=== PATIENT | male | born 1930 | race Caucasian/White ===

== ENCOUNTER 2016-06-04 18:15 | Inpatient (IN) | payer MEDICARE ==
[~2016-06-04] VITALS: Ht 170.2 cm; Wt 69.0 kg
[~2016-06-04 18:15] MED LIST: ALLO100T PO; ASPI1TAB PO; ASPI325T PO; ATOR1TAB19 PO; CAND16TA2 PO; CAND8TAB PO; CIPR500T89 PO; CYCL10TA PO; FLAG500T PO; GABA-279 PO; GLIP5TAB8 PO; GLYB25TA PO; HAIR1TAB2 PO; HYDR-3713 PO; METF500T PO; NABU750T PO; PERC5TAB6 PO; PROT1TAB2 PO; TAMS0.4C2 PO; TYLE650T30 PO; VITA200038 PO; VITMTA PO; ZOFR4TAB3 PO
[2016-06-04] MEDS ORDERED: D3 22000 PO (18:31)
[2016-06-04] MEDS ORDERED: LOSA25TA8 PO (18:31)
[2016-06-04] MEDS ORDERED: ASPI81TA85 PO (18:31)
[2016-06-04] MEDS ORDERED: PRESCAP6 PO (18:31)
[2016-06-04] MEDS ORDERED: LABETALOL HCL 100 MG/20 ML VIAL IV STA (18:56)
[2016-06-04 19:10] LABS: BASO % 0.2 % (0.0-1.0); EOS # 0.1 K/mm3 (0.0-0.50); EOS % 0.8 % (0.0-3.0); LARGE UNSTAINED CELL # 0.1 K/mm3 (0.0-0.4); LARGE UNSTAINED CELL % 1.6 % (0.0-4.0); LYMPH # 1.2 K/mm3 (1.5-4.5); LYMPH % 12.4 % (24.0-44.0); MEAN CORPUSCULAR HEMOGLOBIN 33.3 pg (27.0-33.0); MEAN CORPUSCULAR HGB CONC 34.1 g/dl (32.0-36.5); MEAN CORPUSCULAR VOLUME 97.6 fl (80.0-96.0); MONO # 0.6 K/mm3 (0.0-0.8); MONO % 6.9 % (0.0-5.0); NEUTROPHILS # 6.9 K/mm3 (1.8-7.7); NEUTROPHILS % 78.1 % (36.0-66.0); PLATELET COUNT, AUTOMATED 177 k/mm3 (150-450); RED CELL DISTRIBUTION WIDTH 12.6 % (11.5-14.5); WHITE BLOOD COUNT 8.8 K/mm3 (4.0-10.0)
[2016-06-04 19:26] LABS: ALBUMIN/GLOBULIN RATIO 1.29 (1.00-1.93); ALKALINE PHOSPHATASE 142 U/L (45-117); ALT/SGPT 29 U/L (12-78); ANION GAP 5 MEQ/L (8-16); AST/SGOT 25 U/L (15-37); BILIRUBIN,DIRECT 0.2 MG/DL (0.0-0.2); BILIRUBIN,TOTAL 0.5 MG/DL (0.2-1.0); BLOOD UREA NITROGEN 29 MG/DL (7-18); CARBON DIOXIDE LEVEL 32 MEQ/L (21-32); CHLORIDE LEVEL 100 MEQ/L (98-107); CREATININE FOR GFR 1.04 MG/DL (0.70-1.30); GLOMERULAR FILTRATION RATE > 60.0 (>35); GLUCOSE, FASTING 160 MG/DL (83-110); POTASSIUM SERUM 4.4 MEQ/L (3.5-5.1); SODIUM LEVEL 137 MEQ/L (136-145); TOTAL PROTEIN 7.1 GM/DL (6.4-8.2)
--- NOTE | 2016-06-04 19:32 | REP ---
CT HEAD WITHOUT CONTRAST: REASON: Altered mental status. COMPARISON: 01/14/2016 There has been no significant change from the prior exam. Age-related changes are seen with cerebral and cerebellar atrophy and deep matter ischemic changes. These findings are unchanged. There is no evidence of an acute intracranial hemorrhagic or nonhemorrhagic event. There is no shift of the midline structures. There is no evidence of a skull fracture. There is no change in the appearance of the imaged paranasal sinuses and mastoid air cells. They are clear. IMPRESSION:Chronic changes as described above. Signed by Jose Ortega DO 06/04/2016 07:38 P
--- NOTE | 2016-06-04 19:37 | REP ---
CHEST, TWO VIEWS: HISTORY: Altered mental status. COMPARISON: 02/01/2015 FINDINGS: The technique utilized in obtaining the radiograph has magnified the cardiac silhouette and accentuated the interstitial markings. The superior mediastinal structures are midline. The cardiac silhouette is unremarkable in size, shape, and position. The diaphragmatic surfaces of the lungs are regular, and the costophrenic angles are clear. The pulmonary pal are clear. The imaged osseous structures are intact. IMPRESSION: There is no acute cardiopulmonary disease. No significant change from the prior exam. Signed by Jose Ortega DO 06/04/2016 07:40 P
[2016-06-04] MEDS ORDERED: ASPIRIN 325 MG TAB PO ONE (20:00)
--- NOTE | 2016-06-04 21:11 | ECGEPIP ---
Stationary ECG Study [facility] - ED Test Date: 2016-06-04 Pat Name: BERT CASTLE Department: Room: - Gender: M Interior Design Assistant: JOSH : [id number] Requested By: MUNA Dyson Order Number: [id number] Reading MD: Shadia Cedeno Measurements Intervals [place] Rate: 89 P: ND: 0 QRS: -57 QRSD: 92 T: 58 QT: 366 QTc: 446 Interpretive Statements SINUS PAC MARKED LEFT AXIS DEVIATION NSTTW ABNORMALITY INCREASED RATE 01/14/16 Electronically Signed On 06-04-2016 21:11:05 EDT by Shadia Cedeno
[2016-06-04] MEDS ORDERED: niCARdipine IV 40 MG in APPROPRIATE DILUENT 1 EA IV SCH (21:26)
[2016-06-04] MEDS ORDERED: ASPI81TAEC PO (21:40)
[2016-06-04] MEDS ORDERED: LATA5OPD OU (21:40)
[2016-06-04] MEDS ORDERED: ALEV220T26 PO (21:40)
[2016-06-04] MEDS ORDERED: GLUCAGON FOR INJ 1 MG VIAL (J1610) SC PRN (22:30)
[2016-06-04] MEDS ORDERED: DEXTROSE 50% 50 ML SYRINGE IV PRN (22:30)
[2016-06-04] MEDS ORDERED: GLUCOSE 4 GM CHEW TABLET PO PRN (22:30)
--- NOTE | 2016-06-04 22:56 | HPEPDOC ---
Medical History and Physical Date of Admission Jun 04, 2016 at 21:26 History and Physical PRIMARY CARE PROVIDER: ATTENDING: Chandni Tovar MD CHIEF COMPLAINT: Altered mental status HISTORY OF PRESENT ILLNESS: This 86-year-old male past medical history of hypertension, TIA 4, diabetes mellitus, prostate cancer status post radiation smears ago, gout, back pain sciatica who presents with altered mental status and confusion. Daughter states that the patient was having some slurred speech which is his typical symptoms when he has his TIAs. He has been seen in [facility] on the daughter says he had an extensive workup with no cause for his TIAs. The patient has been maintained on aspirin and statin. Daughter states that the patient's was walking around the house and was very confused. His blood sugars were in the 200s, as blood pressure was 180/80 and continue to climb. He also had difficulty with speaking. Also had a facial droop which has improved since he's been in the ED. In the ED patient was also noted to have a blood pressure of 239/115 with a map of 156. He was started on a nicardipine drip with a goal map of 110-115. Will serve closely in ICU given this hypertensive emergency. ED physician had spoken to Dr. Puente who stated the patient falls outside of the window for TPA as his symptoms had occurred 2 PM today. PAST MEDICAL HISTORY: As per HPI PAST SURGICAL HISTORY: Hernia repair, cholecystectomy, hip repair SOCIAL HISTORY: No tobacco, alcohol, illicit drug use. FAMILY HISTORY:Non contrib. ALLERGIES: Please see below. REVIEW OF SYSTEMS: Unable to obtain - expressive aphasia HOME MEDICATIONS: Please see below. PHYSICAL EXAMINATION: Vitals: (see below) General: No acute distress, laying comfortably in bed. HEENT: Moist mucous membranes. Neck: No JVD or lymphadenopathy Cardiac: RRR, No murmurs Pulm: Clear to auscultation b/l. No wheezing, rhonchi Abd: NT/ND + BS Ext: No edema or cyanosis Neuro: Strength 4/5 RUE/RLE. 5/5 LUE/LLE. CN 2-12 intact. Difficulty in completing exam. Negative Babinki. Mod - severe Expressive aphasia. Difficulty completing full neuro exam and following directions. NIH 5 LABORATORY DATA: See below. IMAGING: CT Head 06/04/16 There has been no significant change from the prior exam. Age-related changes are seen with cerebral and cerebellar atrophy and deep matter ischemic changes. These findings are unchanged. There is no evidence of an acute intracranial hemorrhagic or nonhemorrhagic event. There is no shift of the midline structures. There is no evidence of a skull fracture. There is no change in the appearance of the imaged paranasal sinuses and mastoid air cells. They are clear. IMPRESSION:Chronic changes as described above. CXR 06/04/16 IMPRESSION: There is no acute cardiopulmonary disease. No significant change from the prior exam. MICROBIOLOGY: Please see below. ASSESSMENT/PLAN: Hypertensive emergency- patient with expressive aphasia, right-sided hemiparesis , sever dysarthria, NIH 5, that started at 2 PM. He is outside of the window for TPA. It's likely that the patient is having metabolic encephalopathy secondary to this hypertensive emergency. We'll reduce her blood pressure by 25 % over the next 24 hours with a goal map of 110 to 115. Neuro checks, PT/OT/ speech therapy. Nicardipine drip. Monitor in ICU. Continue aspirin and statin. MRI/MRA brain, MRA carotids. Diabetes mellitus- hold home by mouth regimen. Sliding scale insulin for now. History of prostate cancer status post radiation- has been having urinary retention had intermittently stopped his Flomax. DVT prophylaxis- SCDs Patient will be followed by Dr. Abreu starting 06/05/16 7 AM. Vital Signs Vital Signs Date Time Temp Pulse Resp B/P Pulse Ox O2 Delivery O2 Flow Rate FiO2 06/04/16 18:17 90 16 196/140 100 Nasal Cannula 2 06/04/16 18:24 97.9 Laboratory Data Labs 24H Laboratory Tests 2 06/04/16 18:49: Aspartate Amino Transf (AST/SGOT) 25, Alanine Aminotransferase (ALT/SGPT) 29, Alkaline Phosphatase 142H, Total Bilirubin 0.5, Direct Bilirubin 0.2, Albumin 4.0, Albumin/Globulin Ratio 1.29, Ammonia 15, Anion Gap 5L, White Blood Count 8.8, Red Blood Count 3.92L, Hemoglobin 13.1L, Hematocrit 38.3L, Mean Corpuscular Volume 97.6H, Mean Corpuscular Hemoglobin 33.3H, Mean Corpuscular Hemoglobin Concent 34.1, Red Cell Distribution Width 12.6, Platelet Count 177, Neutrophils (%) (Auto) 78.1H, Lymphocytes (%) (Auto) 12.4L, Monocytes (%) (Auto ) 6.9H, Eosinophils (%) (Auto) 0.8, Basophils (%) (Auto) 0.2, Neutrophils # ( Auto) 6.9, Lymphocytes # (Auto) 1.2L, Monocytes # (Auto) 0.6, Eosinophils # ( Auto) 0.1, Basophils # (Auto) 0.0, Calcium Level 9.0, Creatine Kinase MB 7.9H, Creatine Kinase MB Relative Index 3.64, Ethyl Alcohol Level < 0.003, Glomerular Filtration Rate > 60.0, Large Unclassified Cells # 0.1, Large Unclassified Cells % 1.6, Thyroid Stimulating Hormone (TSH) 5.360H, Total Creatine Kinase 217 , Total Protein 7.1, Troponin I 0.02 06/04/16 20:30: Urine Amorphous Sediment , Urine Appearance CLEAR, Urine Color YELLOW, Urine pH 6.0, Urine Specific [place] 1.013, Urine Protein NEGATIVE, Urine Glucose (UA) NEGATIVE, Urine Ketones NEGATIVE, Urine Urobilinogen 0.2, Urine Bilirubin NEGATIVE, Urine Leukocyte Esterase NEGATIVE, Urine Bacteria (Auto) NEGATIVE, Urine Blood NEGATIVE, Urine Calcium Carbonate Cryst(Auto) , Urine Calcium Oxalate Cryst (Auto) , Urine Calcium Phosphate Sariah (Auto) , Urine Cellular Casts , Urine Cystine Crystals , Urine Granular Casts (Auto) , Urine Hyaline Casts (Auto) 0, Urine Leucine Crystals , Urine Mucus (Auto) , Urine Nitrite NEGATIVE, Urine Oval Fat Bodies (Auto) , Urine RBC (Auto) 1, Urine Renal Epithelial Cells , Urine Sperm (Auto) , Urine Squamous Epithelial Cells 0, Urine Transitional Epithelial Cells , Urine Trichomonas (Auto) , Urine Triple Phosphate Cryst (Auto) , Urine Tyrosine Crystals , Urine Uric Acid Crystals ( Auto) , Urine WBC (Auto) 1, Urine Waxy Casts (Auto) , Urine Yeast-Like Cells ( Auto) CBC/BMP Laboratory Tests 06/04/16 18:49 Red Blood Count 3.92 L, Mean Corpuscular Volume 97.6 H, Mean Corpuscular Hemoglobin 33.3 H, Mean Corpuscular Hemoglobin Concent 34.1, Red Cell Distribution Width 12.6, Neutrophils (%) (Auto) 78.1 H, Lymphocytes (%) (Auto) 12.4 L, Monocytes (%) (Auto) 6.9 H, Eosinophils (%) (Auto) 0.8, Basophils (%) ( Auto) 0.2, Neutrophils # (Auto) 6.9, Lymphocytes # (Auto) 1.2 L, Monocytes # ( Auto) 0.6, Eosinophils # (Auto) 0.1, Basophils # (Auto) 0.0 Microbiology Microbiology 06/04/16 Urine Culture, Received Pending Home Medications Scheduled (Preservision Areds 2) 1 Cap Cap 1 CAP PO BID Allopurinol (Allopurinol) 100 Mg Tab 100 MG PO DAILY Aspirin (Aspirin EC) 81 Mg Tabec 81 MG PO DAILY Atorvastatin Calcium (Atorvastatin Calcium) 10 Mg Tab 10 MG PO DAILY Cholecalciferol (Vitamin D-3) 2,000 Unit Tab 2,000 UNIT PO DAILY Gabapentin (Gabapentin) 100 Mg Cap 200 MG PO BID Glipizide (Glipizide) 5 Mg Tab 1 TAB PO DAILY Latanoprost (Latanoprost) 50 Drop/2.5 Ml Soln 1 DROP OU QHS Losartan Potassium (Losartan Potassium) 25 Mg Tab 25 MG PO DAILY Scheduled PRN Naproxen Sodium (Aleve) 220 Mg Tab 440 MG PO BID PRN PRN PAIN Allergies Coded Allergies: Morphine (Unverified Adverse Reaction, Unknown, DISORIENTED, 06/04/16) CHANDNI TOVAR MD Jun 04, 2016 22:56
[2016-06-04] MEDS ORDERED: HALOPERIDOL 5 MG/ML VIAL (J1630) IM ONE (23:30)
[2016-06-05] VITALS (26 sets, daily range): BP systolic 94–178; BP diastolic 50–91; O2SAT 97–99
[2016-06-05] MEDS: LATANOPROST 0.005% OPHTH SOLN 2.5 ML OU SCH ×2 (02:11→20:39)
[2016-06-05 05:29] LABS: BASO % 0.3 % (0.0-1.0); EOS # 0.1 K/mm3 (0.0-0.50); EOS % 1.5 % (0.0-3.0); LARGE UNSTAINED CELL # 0.2 K/mm3 (0.0-0.4); LYMPH # 1.8 K/mm3 (1.5-4.5); LYMPH % 22.1 % (24.0-44.0); MEAN CORPUSCULAR HEMOGLOBIN 32.6 pg (27.0-33.0); MEAN CORPUSCULAR HGB CONC 33.9 g/dl (32.0-36.5); MEAN CORPUSCULAR VOLUME 96.4 fl (80.0-96.0); MONO # 0.7 K/mm3 (0.0-0.8); MONO % 9.4 % (0.0-5.0); NEUTROPHILS # 4.9 K/mm3 (1.8-7.7); NEUTROPHILS % 64.8 % (36.0-66.0); PLATELET COUNT, AUTOMATED 166 k/mm3 (150-450); RED CELL DISTRIBUTION WIDTH 12.7 % (11.5-14.5); WHITE BLOOD COUNT 7.6 K/mm3 (4.0-10.0)
[2016-06-05 05:47] LABS: ALBUMIN 3.4 GM/DL (3.2-5.2); ALBUMIN/GLOBULIN RATIO 1.06 (1.00-1.93); ALKALINE PHOSPHATASE 115 U/L (45-117); ALT/SGPT 23 U/L (12-78); ANION GAP 12 MEQ/L (8-16); AST/SGOT 29 U/L (15-37); BILIRUBIN,TOTAL 0.5 MG/DL (0.2-1.0); BLOOD UREA NITROGEN 23 MG/DL (7-18); CALCIUM LEVEL 8.9 MG/DL (8.8-10.2); CARBON DIOXIDE LEVEL 27 MEQ/L (21-32); CHLORIDE LEVEL 106 MEQ/L (98-107); CREATININE FOR GFR 0.91 MG/DL (0.70-1.30); GLOMERULAR FILTRATION RATE > 60.0 (>35); GLUCOSE, FASTING 128 MG/DL (83-110); MAGNESIUM LEVEL 2.2 MG/DL (1.8-2.4); POTASSIUM SERUM 3.8 MEQ/L (3.5-5.1); SODIUM LEVEL 145 MEQ/L (136-145); TOTAL PROTEIN 6.6 GM/DL (6.4-8.2)
[2016-06-05 08:03] LABS: THYROXINE (T4) 8.1 UG/DL (4.5-12.0)
[2016-06-05] MEDS: ATORVASTATIN 10 MG TAB PO SCH (08:56)
[2016-06-05] MEDS: HumaLOG INSULIN (NovoLOG) PER UNIT SC SCH ×3 (08:58→17:22)
[2016-06-05] MEDS ORDERED: ASPIRIN 325 MG TAB PO SCH (09:00)
[2016-06-05] MEDS: ALLOPURINOL 100 MG TAB PO SCH (10:42)
[2016-06-05] MEDS: VITAMIN D 1,000 INTERNATIONAL UNITS TABLET PO SCH (10:42)
--- NOTE | 2016-06-05 11:06 | IPN ---
DATE: 06/05/2016 SUBJECTIVE: The patient tells me he is feeling unwell. He cannot elaborate any further how he feels unwell or any specific complaints. He specifically denies chest pain, shortness of breath, fevers, chills, weakness, nausea, vomiting. OBJECTIVE: VITAL SIGNS: Temperature 98.6, pulse 64, respiratory rate 16, blood pressure 175/74, oxygen saturation 91% on room air. GENERAL: He is a frail elderly man, lying flat in bed. He does not appear to be in any acute distress. He is resting peacefully, but easily aroused by verbal stimuli. HEENT: Cranial nerves appear to be grossly intact. I did not appreciate any facial droop. Tongue is midline. He is awake and alert. He is oriented to person, but not place, time or to situation. He has difficulty following basic commands. He is very hard of hearing. CARDIOVASCULAR EXAM: S1 and S2 regular. RESPIRATORY EXAM: Clear. ABDOMINAL EXAM: Benign. EXTREMITIES: He is frail and cachectic. NEUROLOGICAL EXAM: He does not cooperate with neurological testing as he has difficulty following basic instructions, but he spontaneously moves all four extremities and appears to have 5/5 strength in all four extremities. LABORATORY STUDIES: WBC 7.6, hemoglobin 12.0, hematocrit 35.5, platelet count is 166. Chemistry panel: Sodium 145, potassium 3.8, chloride 106, bicarb 27, BUN 23, creatinine 0.9. He has three sets of cardiac enzymes, which are negative. Slightly elevated CK. Elevated TSH of 5.3. IMAGING: The patient did have a CT scan of the head, which revealed chronic changes and a chest x-ray which revealed no acute cardiopulmonary disease. ASSESSMENT/PLAN: This is an 86-year-old man who presented with hypertensive emergency with expressive aphagia, right sided hemiparesis and dysarthria. 1. Hypertensive emergency with stroke like symptoms. At the present time, our primary concern is for a CVA. The patient had been admitted to the ICU and been on nicardipine drip. The drip is actually turned off at this time and his blood pressure appears to be trending down. Goal map is for 110-115, at least for the next several hours before we can attempt to normalize it by restarting first his home ARB. The patient has been seen by speech therapy and cleared for a pureed diet. Physical therapy (PT) and occupational therapy (OT) will be working with him. The patient will be taken off bed rest and placed on out of bed with assist activity order. Will continue with neuro checks. I did speak with Dr. Vitale of neurology who informed me that he is on his consult list to be seen today. The patient is on full dose aspirin. He was previously on a baby aspirin at home. He is also on a statin. He has been ordered for an MRI/MRA. An echocardiogram has been ordered. Will check a hemoglobin A1c. TSH is slightly elevated. 2. Slightly elevated TSH. Will recheck with a thyroid panel. He has may have some sick euthyroid or some subclinical hypothyroidism presenting with his worsening hypertension, although his mental status is at baseline. It is unclear to me. He may have been noncompliant with his medications. Will continue to monitor. 3. Type 2 diabetes. We could use on sliding scale insulin for the time being. 4. History of prostate cancer. Patient recently stopped Flomax. 5. Gout. Will restart the patient's home allopurinol. 6. Dyslipidemia. Continue his statin. 7. Vitamin D deficiency. We will restart his supplementation. 8. Deep vein thrombosis (DVT) prophylaxis. The patient is on sequentials and thromboembolic deterrent stockings (TEDS). If he remains in the hospital we will start him on potentially subcutaneous Lovenox.
--- NOTE | 2016-06-05 12:41 | REP ---
MR BRAIN WITHOUT CONTRAST: HISTORY: Infarction. COMPARISON: CT 06/04/2016. Areas of increased signal intensity on T2-weighted images are present in the periventricular and subcortical white matter and jerry. This represents small vessel ischemic disease. There is no intraparenchymal hemorrhage, acute infarct, mass, or midline shift. The ventricular system and cortical sulci are dilated consistent with moderate volume loss. There is no extracerebral collection. The sinuses are clear. IMPRESSION: 1. Small vessel ischemic disease. 2. Moderate volume loss. Signed by Diogo Elam MD 06/05/2016 12:44 P
[2016-06-05] MEDS: ASPIRIN 81 MG CHEW TABLET PO SCH (13:10)
[2016-06-05] MEDS: GABAPENTIN 100 MG CAP PO SCH ×2 (13:11→20:39)
[2016-06-05] MEDS ORDERED: HumaLOG INSULIN (NovoLOG) PER UNIT SC SCH (21:00)
[2016-06-05] MEDS ORDERED: amLODIPine 5 MG TAB PO ONE (22:30)
[2016-06-06] VITALS (7 sets, daily range): BP systolic 121–158; BP diastolic 63–69; O2SAT 99
[2016-06-06 04:53] LABS: BASO % 0.2 % (0.0-1.0); EOS # 0.1 K/mm3 (0.0-0.50); EOS % 1.9 % (0.0-3.0); LARGE UNSTAINED CELL # 0.1 K/mm3 (0.0-0.4); LARGE UNSTAINED CELL % 1.6 % (0.0-4.0); LYMPH # 1.8 K/mm3 (1.5-4.5); LYMPH % 22.4 % (24.0-44.0); MEAN CORPUSCULAR HEMOGLOBIN 32.9 pg (27.0-33.0); MEAN CORPUSCULAR HGB CONC 33.7 g/dl (32.0-36.5); MEAN CORPUSCULAR VOLUME 97.7 fl (80.0-96.0); MONO # 0.6 K/mm3 (0.0-0.8); MONO % 8.5 % (0.0-5.0); NEUTROPHILS # 4.8 K/mm3 (1.8-7.7); NEUTROPHILS % 65.4 % (36.0-66.0); PLATELET COUNT, AUTOMATED 162 k/mm3 (150-450); RED CELL DISTRIBUTION WIDTH 12.8 % (11.5-14.5); WHITE BLOOD COUNT 7.4 K/mm3 (4.0-10.0)
[2016-06-06 05:14] LABS: ALBUMIN 3.4 GM/DL (3.2-5.2); ALBUMIN/GLOBULIN RATIO 1.03 (1.00-1.93); ALKALINE PHOSPHATASE 122 U/L (45-117); ALT/SGPT 24 U/L (12-78); ANION GAP 8 MEQ/L (8-16); AST/SGOT 29 U/L (15-37); BILIRUBIN,TOTAL 0.6 MG/DL (0.2-1.0); BLOOD UREA NITROGEN 20 MG/DL (7-18); CALCIUM LEVEL 8.9 MG/DL (8.8-10.2); CARBON DIOXIDE LEVEL 29 MEQ/L (21-32); CHLORIDE LEVEL 102 MEQ/L (98-107); CREATININE FOR GFR 0.86 MG/DL (0.70-1.30); GLOMERULAR FILTRATION RATE > 60.0 (>35); GLUCOSE, FASTING 119 MG/DL (83-110); MAGNESIUM LEVEL 1.9 MG/DL (1.8-2.4); POTASSIUM SERUM 3.8 MEQ/L (3.5-5.1); SODIUM LEVEL 139 MEQ/L (136-145); TOTAL PROTEIN 6.7 GM/DL (6.4-8.2)
[2016-06-06] MEDS: HumaLOG INSULIN (NovoLOG) PER UNIT SC SCH (07:30)
--- NOTE | 2016-06-06 08:35 | ECHO ---
DATE OF SERVICE: 06/05/2016 REFERRING PROVIDER: Dr. Shamar Tovar PATIENT LOCATION: [id number] REASON FOR THE ECHOCARDIOGRAM: Cerebrovascular accident (CVA). 2D MEASUREMENTS: IVS: 0.9 cm LV: 3.6 cm LVPW: 0.9 cm LA: 3.0 cm Aorta: 3.1 cm DOPPLER MEASUREMENTS: Peak velocity across the aortic valve: 1.6 m/s Peak velocity across the LVOT: 1.1 m/s Mitral E: 0.85 Mitral A: 1.1 with a ratio of 0.8 Maximum tricuspid valve velocity: 2.5 m/s 2D COMMENTS: 1. Normal left ventricular size, wall thickness, and normal global left ventricular systolic function. The estimated global left ventricular systolic ejection fraction is 60-65%. 2. Normal left atrium. Normal right atrium and right ventricle. The right ventricle, however, was not well visualized. 3. The atrial septum appeared to be normal without evidence of defect or shunt. 4. Normal aortic root. 5. No pericardial effusion seen. 6. Minimally calcified aortic valve with normal leaflet excursion. Mildly calcified mitral annulus with normal anterior mitral valve leaflet motion. Normal tricuspid valve. The pulmonic valve and proximal aortic pulmonary branches were not well visualized. 7. The inferior vena cava was not well visualized. DOPPLER: It detects trace mitral regurgitation and mild tricuspid regurgitation. The calculated pulmonary artery systolic pressure varies between 30 to 40 mmHg. Abnormal relaxation pattern was noted across the mitral valve leaflets as well as the mitral valve annulus, consistent with delayed relaxation. IMPRESSION: 1. Normal global left ventricular systolic function. There are features of left ventricular diastolic dysfunction, grade 1. 2. Aortic valve sclerosis without stenosis or aortic regurgitation. 3. Mitral annulus calcification with trace mitral regurgitation. 4. Mild tricuspid regurgitation with mild pulmonary hypertension. MTDD
[2016-06-06] MEDS: GABAPENTIN 100 MG CAP PO SCH ×2 (09:57→20:22)
[2016-06-06] MEDS: ASPIRIN 81 MG CHEW TABLET PO SCH (09:57)
[2016-06-06] MEDS: ATORVASTATIN 10 MG TAB PO SCH (09:57)
[2016-06-06] MEDS: VITAMIN D 1,000 INTERNATIONAL UNITS TABLET PO SCH (09:58)
[2016-06-06] MEDS: LOSARTAN 25 MG TAB PO SCH (10:00)
[2016-06-06] MEDS: ALLOPURINOL 100 MG TAB PO SCH (10:01)
[2016-06-06] MEDS: ENOXAPARIN 40 MG/0.4 ML SYRINGE (J1650) SC SCH (11:16)
--- NOTE | 2016-06-06 11:32 | IPN ---
DATE: 06/06/2016 SUBJECTIVE: Patient tells me he is feeling well. He denies complaints. He is oriented to person but not place, time or to situation. He follows commands. OBJECTIVE: VITAL SIGNS: Temperature 98.3, pulse 68, respiratory rate 18, blood pressure (BP) 135/69, oxygen saturation 99% on room air. GENERAL: He is a frail elderly man, sleeping peacefully when I entered the room but easily arousable to verbal stimuli. He does not appear to be in any acute distress whatsoever. Cranial nerves II-XII appear to be grossly intact at this time. CARDIOVASCULAR EXAM: S1 and S2 regular. RESPIRATORY EXAM: Clear. ABDOMINAL EXAM: Benign. EXTREMITIES: No clubbing, cyanosis or edema. Spontaneously moves all four extremities. LABORATORY STUDIES: WBC 7.4, hemoglobin 12.5, platelet count 162. Chemistry panel: Sodium 139, potassium 3.8, chloride 102, bicarbonate 29, BUN 20, creatinine 0.8. Hemoglobin A1c is 6.3. Urinalysis is negative. Toxicology is negative. MICROBIOLOGY: Urine cultures are negative. MRI of the brain reveals small vessel ischemic disease and moderate volume loss. ASSESSMENT AND PLAN: This is an 86-year-old man initially presented with right hemiparesis, expressive aphasia and confusion. PROBLEMS: 1. Hypertensive emergency, most likely hypertensive encephalopathy. Dr. Vitale of neurology has seen the patient. His help is greatly appreciated. At this time, the patient does appear to be improving and progressing, although quite slowly. Per my exam today, he is spontaneously moving all four extremities. He did not exhibit right hemiparesis. He does not appear to be exhibiting dysarthria but, however, he does remain confused. I did hold a family conference with his daughter, Charisse who informed that yesterday he was less confused and was oriented for her. He is very hard of hearing. Speech therapy has cleared him for a pureed diet. We will have him continue on working with physical therapy (PT) and occupational therapy (OT) and monitor him closely. It does not appear as though he has had an acute CVA. It could have potentially been related to transient ischemic attack (TIA). We will continue to monitor him closely and see how he progress over the next 48 hours. Should he improve, he may be able to return home to his daughter with whom he lives, but I think more likely he may require some rehabilitation. Please note the daughter did mention to me that he has had similar episodes of this in the past, five in the last 4 years. He has had thorough workups, including MRIs, echocardiograms, carotic ultrasounds at many hospitals, including [place]. In the past, he has had similar slow to improve responses. 2. Elevated thyroid-stimulating hormone (TSH). Patient may have some sick euthyroid. He is not presenting as though he is in myxedema coma. I would recommend rechecking once his acute medical illness has resolved. 3. Type 2 diabetes. Continue on insulin sliding scale. 4. History of prostate cancer. The patient recently stopped Flomax. He is asymptomatic. He currently has a Calhoun catheter in place. We will try to discontinue this today and give him a voiding trial. 5. Gout. The patient is on allopurinol. 6. Dyslipidemia. He is on statin. 7. Vitamin D deficiency. He is supplementation. 8. Deep vein thrombosis (DVT) prophylaxis. Sequentials and thromboembolic deterrent stockings (TEDS). We will start him on subcutaneous Lovenox. DISPOSITION: The patient's clinical status does appear to be improving. I will transfer him out of the medical intensive care unit as he is no longer requiring intravenous (IV) medications to control his blood pressure and continue to follow him closely on the medical-surgical floor. ANTHONY
[2016-06-06] MEDS: glipiZIDE (GLUCOTROL) 5 MG TAB PO SCH (11:57)
[2016-06-06] MEDS: LATANOPROST 0.005% OPHTH SOLN 2.5 ML OU SCH (20:22)
[2016-06-07 05:43] LABS: BASO % 0.1 % (0.0-1.0); EOS # 0.2 K/mm3 (0.0-0.50); EOS % 2.8 % (0.0-3.0); LARGE UNSTAINED CELL # 0.2 K/mm3 (0.0-0.4); LARGE UNSTAINED CELL % 2.1 % (0.0-4.0); LYMPH # 1.9 K/mm3 (1.5-4.5); LYMPH % 24.7 % (24.0-44.0); MEAN CORPUSCULAR HEMOGLOBIN 32.4 pg (27.0-33.0); MEAN CORPUSCULAR HGB CONC 32.9 g/dl (32.0-36.5); MEAN CORPUSCULAR VOLUME 98.5 fl (80.0-96.0); MONO # 0.6 K/mm3 (0.0-0.8); MONO % 8.3 % (0.0-5.0); NEUTROPHILS # 4.5 K/mm3 (1.8-7.7); NEUTROPHILS % 61.9 % (36.0-66.0); PLATELET COUNT, AUTOMATED 187 k/mm3 (150-450); RED CELL DISTRIBUTION WIDTH 12.8 % (11.5-14.5); WHITE BLOOD COUNT 7.2 K/mm3 (4.0-10.0)
[2016-06-07 05:52] LABS: ALBUMIN 3.4 GM/DL (3.2-5.2); ALBUMIN/GLOBULIN RATIO 1.17 (1.00-1.93); ALKALINE PHOSPHATASE 116 U/L (45-117); ALT/SGPT 22 U/L (12-78); ANION GAP 8 MEQ/L (8-16); AST/SGOT 25 U/L (15-37); BILIRUBIN,TOTAL 0.6 MG/DL (0.2-1.0); BLOOD UREA NITROGEN 25 MG/DL (7-18); CALCIUM LEVEL 8.4 MG/DL (8.8-10.2); CARBON DIOXIDE LEVEL 28 MEQ/L (21-32); CHLORIDE LEVEL 105 MEQ/L (98-107); GLOMERULAR FILTRATION RATE > 60.0 (>35); GLUCOSE, FASTING 110 MG/DL (83-110); POTASSIUM SERUM 3.8 MEQ/L (3.5-5.1); SODIUM LEVEL 141 MEQ/L (136-145); TOTAL PROTEIN 6.3 GM/DL (6.4-8.2)
[2016-06-07 06:00] VITALS: BP 117/56
[2016-06-07] MEDS: ENOXAPARIN 40 MG/0.4 ML SYRINGE (J1650) SC SCH (09:02)
[2016-06-07] MEDS: ASPIRIN 81 MG CHEW TABLET PO SCH (09:03)
[2016-06-07] MEDS: glipiZIDE (GLUCOTROL) 5 MG TAB PO SCH (09:03)
[2016-06-07] MEDS: ALLOPURINOL 100 MG TAB PO SCH (09:03)
[2016-06-07] MEDS: GABAPENTIN 100 MG CAP PO SCH ×2 (09:03→21:00)
[2016-06-07] MEDS: VITAMIN D 1,000 INTERNATIONAL UNITS TABLET PO SCH (09:03)
[2016-06-07] MEDS: ATORVASTATIN 10 MG TAB PO SCH (09:03)
[2016-06-07] MEDS: LOSARTAN 25 MG TAB PO SCH (09:09)
--- NOTE | 2016-06-07 11:25 | IPN ---
DATE: 06/07/2016 SUBJECTIVE: This morning, the patient tells me that he feels well. He has no complaints. The patient is awake, alert, and oriented times four. He knows the year, the month, the day. He can tell me that he is in the hospital and he knows that he is in the hospital because he had high blood pressure. OBJECTIVE: VITAL SIGNS: Temperature 97.9, pulse 66, respiratory rate 20, blood pressure (BP) 117/56, oxygen saturation 96% on room air. GENERAL: He is a frail, elderly, man, laying flat in bed sleeping peacefully, but easily arousable to verbal stimuli. He does not appear to be in any acute distress whatsoever. NEUROLOGIC: Cranial nerves II-XII are grossly intact. His neurological examination appears to be fairly nonfocal at this time. HEENT: He has moist mucous membranes. No elevation of central venous pressure (CVP). CARDIOVASCULAR EXAMINATION: S1, S2 regular. RESPIRATORY EXAMINATION: Clear. ABDOMINAL EXAMINATION: Benign. EXTREMITIES: He has 5/5 strength in all four extremities and good coordination of the upper extremities which is improved from previous day's examination. LABORATORY STUDIES: WBC 7.2, hemoglobin 12, platelet count 187. Chemistry panel: Sodium 141, potassium 3.8, chloride 105, bicarbonate 28, BUN 25, creatinine 1.0. No new imaging. ASSESSMENT AND PLAN: This is an 86-year-old man who initially presented with right-sided hemiparesis, expressive aphasia and confusion, likely related to hypertensive encephalopathy in the setting of hypertensive emergency. PROBLEMS: 1. Hypertensive emergency and associated hypertensive encephalopathy. Dr. Vitale of neurology's help was greatly appreciated. We are still awaiting his dictated note. The patient does appear to be improving quite nicely with control of his blood pressure. At the time being, he is controlled with only his home medication of losartan. He is fully oriented today and appears to be close to his baseline as per my conversations with the patient's daughter, Charisse Olea. We will continue having him work with physical therapy (PT) and occupational therapy (OT). At the present time, OT feels as though he is not safe discharge home. PT feels that he is safe only to rehabilitation, but I feel as though he has improved in the last 24 hours and may continue to improve even more so in the next 24. The patient has reportedly had several episodes of this over the last four years without any clear etiologies. He has had extensive workup at [facility] previously, including numerous MRIs, echocardiograms, and carotid ultrasounds. In the past, the patient has always improved at a similar rate that he has on this occasion as well. 2. Elevated thyroid-stimulating hormone (TSH). He may have some sick euthyroid. His clinical symptoms are improving. I would recommend rechecking a TSH in the outpatient setting with his primary care provider. 3. Type 2 diabetes. The patient is on insulin sliding scale. 4. History of prostate cancer. Recently stopped his Flomax. The patient is asymptomatic. 5. Gout. The patient is on allopurinol. 6. Dyslipidemia. He is on a statin. 7. Vitamin D deficiency. He is supplementation. 8. Deep vein thrombosis (DVT) prophylaxis. He is on sequentials and thromboembolic deterrent stockings (TEDS) as well as Lovenox. DISPOSITION: We will continue to monitor the patient closely. He does appear to be improving. He may benefit from rehabilitation. We will see how he progresses over the next several days.
[2016-06-07 14:00] VITALS: BP 111/62
[2016-06-07] MEDS: LATANOPROST 0.005% OPHTH SOLN 2.5 ML OU SCH (21:01)
[2016-06-07 22:00] VITALS: BP 159/79
[2016-06-08 06:00] VITALS: BP 146/67
[2016-06-08 06:02] LABS: BASO % 0.2 % (0.0-1.0); EOS # 0.2 K/mm3 (0.0-0.50); EOS % 2.7 % (0.0-3.0); LARGE UNSTAINED CELL # 0.2 K/mm3 (0.0-0.4); LARGE UNSTAINED CELL % 2.3 % (0.0-4.0); LYMPH # 1.8 K/mm3 (1.5-4.5); LYMPH % 24.6 % (24.0-44.0); MEAN CORPUSCULAR HEMOGLOBIN 32.3 pg (27.0-33.0); MEAN CORPUSCULAR HGB CONC 33.6 g/dl (32.0-36.5); MEAN CORPUSCULAR VOLUME 96.2 fl (80.0-96.0); MONO # 0.6 K/mm3 (0.0-0.8); MONO % 8.3 % (0.0-5.0); NEUTROPHILS # 4.6 K/mm3 (1.8-7.7); NEUTROPHILS % 61.9 % (36.0-66.0); PLATELET COUNT, AUTOMATED 177 k/mm3 (150-450); RED CELL DISTRIBUTION WIDTH 12.5 % (11.5-14.5); WHITE BLOOD COUNT 7.4 K/mm3 (4.0-10.0)
[2016-06-08 06:13] LABS: ALBUMIN 3.2 GM/DL (3.2-5.2); ALBUMIN/GLOBULIN RATIO 0.97 (1.00-1.93); ALKALINE PHOSPHATASE 112 U/L (45-117); ALT/SGPT 22 U/L (12-78); ANION GAP 7 MEQ/L (8-16); AST/SGOT 22 U/L (15-37); BILIRUBIN,TOTAL 0.6 MG/DL (0.2-1.0); BLOOD UREA NITROGEN 22 MG/DL (7-18); CALCIUM LEVEL 8.5 MG/DL (8.8-10.2); CARBON DIOXIDE LEVEL 30 MEQ/L (21-32); CHLORIDE LEVEL 104 MEQ/L (98-107); CREATININE FOR GFR 0.94 MG/DL (0.70-1.30); GLOMERULAR FILTRATION RATE > 60.0 (>35); GLUCOSE, FASTING 116 MG/DL (83-110); MAGNESIUM LEVEL 1.9 MG/DL (1.8-2.4); POTASSIUM SERUM 3.8 MEQ/L (3.5-5.1); SODIUM LEVEL 141 MEQ/L (136-145); TOTAL PROTEIN 6.5 GM/DL (6.4-8.2)
[2016-06-08] MEDS: glipiZIDE (GLUCOTROL) 5 MG TAB PO SCH (08:24)
[2016-06-08] MEDS: ASPIRIN 81 MG CHEW TABLET PO SCH (08:24)
[2016-06-08] MEDS: GABAPENTIN 100 MG CAP PO SCH (08:24)
[2016-06-08] MEDS: VITAMIN D 1,000 INTERNATIONAL UNITS TABLET PO SCH (08:24)
[2016-06-08 08:25] VITALS: BP 135/85
[2016-06-08] MEDS: LOSARTAN 25 MG TAB PO SCH (08:25)
[2016-06-08] MEDS: ALLOPURINOL 100 MG TAB PO SCH (08:25)
[2016-06-08] MEDS: ATORVASTATIN 10 MG TAB PO SCH (08:25)
[2016-06-08] MEDS: ENOXAPARIN 40 MG/0.4 ML SYRINGE (J1650) SC SCH (08:26)
--- NOTE | 2016-06-08 12:01 | CR ---
DATE OF CONSULTATION: 06/08/2016 REFERRING PROVIDER: Dr. Umesh Abreu REASON FOR CONSULTATION: Altered mental status. HISTORY OF PRESENT ILLNESS: Miguel Wakefield is an 86-year-old male with past medical history of past TIAs, hypertension, diabetes, prostate cancer status post radiation who presents with the chief complaint of experiencing some slurred speech while at home. The patient was noted to have rising high blood pressure to the point where his systolics were greater than 180. The patient arrived to the emergency department, his blood pressure was 239/115. The patient was started on nicardipine drip. This blood pressure was gradually getting better. His confusion is gradually clearing up. The patient did undergo an MRI which was negative for any stroke. He does take aspirin daily. He denies any headache, numbness, tingling, weakness, slurred speech, dysarthria, aphasia, vertigo at this time. REVIEW OF SYSTEMS: 14-point review of systems is negative except as per HPI. PAST MEDICAL HISTORY: Hypertension, TIA times four, diabetes mellitus, prostate cancer status post radiation, gout, and chronic back pain. PAST SURGICAL HISTORY: Hernia repair, cholecystectomy, hip repair. SOCIAL HISTORY: The patient denies use of tobacco, alcohol or illicit drugs. FAMILY HISTORY: Noncontributory. ALLERGIES: None. PRESENT MEDICATIONS: Include: - allopurinol 100 mg by mouth every day - aspirin 81 mg daily - atorvastatin 10 mg daily - cholecalciferol 2000 IU by mouth every day - gabapentin 100 mg two capsules by mouth twice a day - glipizide 5 mg by mouth daily - latanoprost one drop OU at bedtime - losartan 25 mg daily ALLERGIES: MORPHINE AND RELATED. FAMILY HISTORY: Noncontributory. PHYSICAL EXAMINATION: Blood pressure 157/69, pulse rate 72, respiratory rate is 22, temperature is 98.6 degrees Fahrenheit, oxygenation 99% on room air. The patient is alert, oriented to person, place and time. Speech, language, comprehension, and repetition are intact. Pupils are 2.5 mm round, reactive to light. Extraocular was are intact without nystagmus. Sensation V1, V2, V3 is intact without a sensory loss. No facial asymmetry on activation. Palate elevates symmetrically. Tongue is midline. No pronator drift. Strength is 5/5 including bilateral deltoids, biceps, triceps, hand turn supervisor, iliopsoas, quadriceps, anterior tibialis. Deep tendon reflexes are 2's throughout. Decreased in lower extremities. Romberg testing deferred. Gait is normal. Sensory is intact to light touch in all four extremities. Coordination: Normal [id number] without any signs of ataxia or dysmetria. ASSESSMENT: 1. Altered mental status likely hypertensive encephalopathy. PLAN: 1. Gradually improved blood pressures normalize during hospital stay. 2. The patient can followup in the [facility] upon discharge. Recommend obtaining EEG. 3. Optimize blood pressure and cholesterol and diabetes. 4. PT, OT.
[2016-06-08] MEDS ORDERED: AMLO25TA PO (13:32)
[2016-06-08 14:00] VITALS: BP 122/69
--- NOTE | 2016-06-08 15:32 | DSES ---
DATE OF ADMISSION: 06/04/2016 DATE OF DISCHARGE: 06/08/2016 DISCHARGE DIAGNOSIS: Hypertensive emergency. SECONDARY DIAGNOSES: Hypertensive encephalopathy. Abnormal thyroid function. Type 2 diabetes. Prostate cancer. Gout. Dyslipidemia. Vitamin D deficiency. HOSPITAL COURSE: The patient is an 86-year-old man who lives at home with his daughter, who has had several episodes in the past, numerous hospitalizations including [facility] where he has had an extensive workup, hypertensive, confused. He has been told that he has had numerous transient ischemic attacks (TIAs) in the past. The patient had right upper extremity hemiparesis as well as dysarthria, confusion which prompted significant hypertension with systolic at 220 which prompted his daughter to bring him to the emergency room. While in the emergency room, the patient may have been having an acute cerebrovascular accident (CVA). He was admitted to the medical service. MRI was completed which did not reveal any acute CVA. CT of the head also did not reveal any acute bleeding. The patient was seen in consultation by neurology, felt that the symptoms were better explained by hypertensive encephalopathy. The patient was seen by physical therapy and occupational therapy and over the next 48 to 72 hours, his blood pressure was normalized, his symptoms did completely resolve and he was at his functional baseline and cleared for discharge home with followup with neurology to consider potentially getting an EEG outpatient with them. While he had a TSH which was slightly abnormal. That should be followed up and rechecked by his primary care provider. He had a hemoglobin A1c which was 6.3. SUBJECTIVE: Today the patient reports he feels well. He tells me he thinks he takes too many medications. He does not want to take any of his medications. He reports that he is feeling better and he wants to go home and he does not want to be in the hospital, and if necessary he will sign himself out against medical advice. OBJECTIVE: VITAL SIGNS: Temperature 98.7, pulse 71, respiratory rate 20, blood pressure 146/67, O2 saturation 97% on room air. GENERAL: He is a frail, elderly man sitting up in a recliner. He does not appear to be in any acute distress whatsoever. HEENT: Cranial nerves II through XII are grossly intact. He has moist mucous membranes. No elevation of central venous pressure. CARDIOVASCULAR: S1, S2, regular. RESPIRATORY: Fairly clear. ABDOMEN: Benign. EXTREMITIES: No clubbing, cyanosis or edema. He is 5/5 in all lower extremities, strength. NEUROLOGICAL: Nonfocal. LABORATORY STUDIES: Today, WBC 7.4, hemoglobin 12.0, hematocrit 35.8, platelet count is 177. Chemistry panel: Sodium 144, potassium 3.8, chloride 104, bicarbonate 30, BUN 22, creatinine 0.9. Microbiology: Urine culture is negative. IMAGING: As outlined above. ASSESSMENT AND PLAN: This is an 86-year-old man with resolved hypertensive emergency and hypertensive encephalopathy. 1. Hypertensive emergency episode with hypertensive encephalopathy. Dr. Vitale of neurology's help is greatly appreciated. He said the patient is to followup with Dr. Vitale in the neuro clinic within the next two weeks. He could have an outpatient EEG at that time. The patient has improved quite nicely with control of his blood pressure being controlled as well. At this time he is awake, alert and oriented times four. He does say that he does not want to take his medications. He does not want to follow any advice or directions I am providing him. Extensive time was spent by me explaining the necessity of taking his medications and close followup and the potential risk of for him as he was quite severely ill when he presented to the hospital. He states that he is 86 years old and he will do what he likes. He feels as thought that the medications are responsible for his illness and not for the resolution of his illness. Significant time was spent answering all questions for the patient and I explained to him that this is not the case. The patient was seen and evaluated by physical therapy and occupational therapy who cleared him for discharge home verbally at this time. 2. Elevated TSH. He may have some sick euthyroid. Would recommend rechecking with his primary care provider now that his acute medical illness has resolved. 3. Type 2 diabetes. He will discharged on his oral agents. It seems to be fairly well controlled. 4. History of prostate cancer. He recently stopped Flomax. He is asymptomatic. 5. Gout. He is on allopurinol. 6. Dyslipidemia. He is on a statin. 7. Vitamin D deficiency. He is on supplementation. DISPOSITION: The patient is being discharged home to the care of his daughter whom he lives with. He is to followup with his primary care provider in 7 days, followup with neurology within 2 weeks. Consider and outpatient EEG. Take all his medications as prescribed and return to the ER if his symptoms worsen. His medical compliance is quite poor. I would not be surprised if he returns to the hospital secondary to this. His activity and diet are as prior to admission. MEDICATIONS AT THE TIME OF DISCHARGE: - Norvasc 2.5 mg daily - allopurinol 100 mg daily - aspirin 81 mg daily - atorvastatin 10 mg daily - vitamin D 2000 units daily - gabapentin 200 mg twice a day - glipizide 5 mg daily - latanoprost 1 drop each eye daily at bedtime - losartan 25 mg daily - Naproxen 440 mg twice a day as needed for pain - PreserVision Areds as per the patient. Greater than 45 minutes spent on organizing safe disposition.
== END 2016-06-08 15:25 | disposition home or self-care (01) | DRG 305 ==
LOC: EDBD 18:15 → M ED 19:31 → M ED INP 21:26 → M ICU 23:33 → M MSPAV 06-06 11:40
PROVIDERS: ADMIT Internal Medicine; ATTEND Internal Medicine
DX: I16.1 Hypertensive emergency (principal); I67.4 Hypertensive encephalopathy; G81.91 Hemiplegia, unspecified affecting right dominant side; I10 Essential (primary) hypertension; E11.9 Type 2 diabetes mellitus without complications; R47.1 Dysarthria and anarthria; E78.5 Hyperlipidemia, unspecified; E07.81 Sick-euthyroid syndrome; H91.93 Unspecified hearing loss, bilateral; Z66 Do not resuscitate; E55.9 Vitamin D deficiency, unspecified; M10.9 Gout, unspecified; Z86.73 Personal history of transient ischemic attack (TIA), and cerebral infarction without residual deficits; Z85.46 Personal history of malignant neoplasm of prostate; Z92.3 Personal history of irradiation; Z79.82 Long term (current) use of aspirin; Z79.899 Other long term (current) drug therapy; Z88.5 Allergy status to narcotic agent; Z79.84 Long term (current) use of oral hypoglycemic drugs